=== PATIENT | female | born 2000 | race Caucasian/White ===

== ENCOUNTER 2020-03-19 00:20 | Inpatient (IN) ==
[~2020-03-19 00:20] MED LIST: *HR* Nalbuphine 10 MG/ML AMPUL IV PRN; Famotidine 20 MG/2 ML VIAL IVP PRN; Lidocaine 1% 20 ML MDV INFILT PRN; Metoclopramide 10 MG/2 ML VIAL IVP PRN; Naloxone 0.4 MG/ML INJ IVP PRN; miSOPROStoL 25 MCG TABLET PO PRN
[2020-03-19 00:39] LABS: Basophils # 0.1 K/mcL (0.0-0.2); Basophils % 0.4 %; Eosinophils # 0.3 K/mcL (0.0-0.6); Eosinophils % 2.2 %; Hematocrit 36.6 % (35.3-44.9); Hemoglobin 11.9 g/dL (11.5-15.4); Immature Granulocytes % 0.6 % (0-4); Lymphocytes # 2.3 K/mcL (0.6-4.6); Lymphocytes % 17.9 %; Mean Corpuscular HGB Conc 32.5 g/dL (31.6-35.5); Mean Corpuscular Hemoglobin 26.7 pg (28.0-33.3); Mean Corpuscular Volume 82.1 fL (83.0-100.0); Monocytes % 7.7 %; Neutrophils # 9.2 K/mcL (1.6-8.9); Platelet Count 266 K/mcL (140-400); Red Blood Count 4.46 M/mcL (3.82-4.97); Red Cell Distribution Width 13.9 % (11.5-14.5); Segmented Neutrophils % 71.2 %
[2020-03-19] MEDS: Ringers Solution, Lactated 1,000 ML IVC SCH ×3 (00:41→11:37)
[2020-03-19 00:54] LABS: Amphetamine Screen,Urine Negative ng/mL (Cutoff=1000); Barbiturate Screen,Urine Negative ng/mL (Cutoff=200); Benzodiazepines Screen,Urine Negative ng/mL (Cutoff=200); Cannabinoid Screen,Urine Negative ng/mL (Cutoff = 50); Cocaine Screen,Urine Negative ng/mL (Cutoff= 300); Opiate Screen,Urine Negative ng/mL (Cutoff=300); Phencyclidine Screen,Urine Negative ng/mL (Cutoff=25)
[2020-03-19 00:55] LABS: Alanine Aminotransferase 9 Units/L (7-52); Aspartate Amino Transferase 16 Units/L (13-39); BUN/Creatinine Ratio 16 (6-26); Blood Urea Nitrogen 9 mg/dL (6-20); Lactate Dehydrogenase 132 Units/L (140-271); eGFR For African Americans > 60 (> 60); eGFR For Non-African Americans > 60 (> 60)
[2020-03-19 00:58] LABS: Protein/Creatinine Ratio,Urine 0.78 mg/mg (0.00-0.20)
[2020-03-19] MEDS ORDERED: Oxytocin 20 units/ LR 1000 mL 20 UNIT/1,000 ML BAG IVC ONE (04:58)
[2020-03-19] MEDS ORDERED: Oxytocin 20 units/ LR 1000 mL 20 UNIT/1,000 ML BAG IVC SCH ×2 (05:00→17:49)
[2020-03-19] MEDS ORDERED: Ondansetron 4 MG/2 ML VIAL ONE (08:45)
[2020-03-19] MEDS ORDERED: Ondansetron 4 MG/2 ML VIAL IVP PRN (08:46)
[2020-03-19] MEDS ORDERED: EPHEDrine 50 MG/ML VIAL IVP PRN (10:06)
[2020-03-19] MEDS ORDERED: Epidural Premix (fent/bupiv) 110 ML EP SCH (10:15)
[2020-03-19] MEDS ORDERED: Lanolin 7 G OINT...G. TP PRN (17:49)
[2020-03-19] MEDS ORDERED: Acetaminophen 325 MG TABLET PO PRN (17:49)
[2020-03-19] MEDS ORDERED: Measles/Mumps/Rubella Vacc 0.5 ML VIAL SQ PRN (17:49)
[2020-03-19] MEDS ORDERED: Benzocaine/Menthol 56 GM AEROSOL SPRAY TP PRN (17:49)
[2020-03-20] MEDS: Ibuprofen 600 MG TABLET PO PRN ×2 (06:27→13:17)
[2020-03-20 07:50] VITALS: BP 125/85
[2020-03-20] MEDS ORDERED: Prenatal Vit/FA 1 EACH TABLET PO SCH (09:00)
== END 2020-03-20 16:09 | disposition home or self-care (01) | DRG 560 ==
LOC: 1NENULAB → 1NENUOBS 18:08
PROVIDERS: ADMIT Registered Nurse; ATTEND Registered Nurse